=== PATIENT | male | born 1980 | race American Indian/Alaskan Native ===

== ENCOUNTER 2021-03-15 19:52 | Emergency (ER) | payer BC ==
[2021-03-15 23:53] VITALS: BP 133/84
--- NOTE | 2021-03-16 00:48 | Emergency Department Report ---
ED General Adult HPI - General Chief complaint: GI Bleed Stated complaint: HEMORRHOIDS PUI?: No Time Seen by Provider: 03/16/21 00:37 Source: patient, RN notes reviewed, old records reviewed Mode of arrival: Ambulatory Limitations: No Limitations - History of Present Illness Initial comments: The patient is a pleasant 40-year-old gentleman. The patient is not known to myself previously. In 2019, the patient had a colonoscopy in [place], for hemorrhoids. I am able to review his old medical records. He had a colonoscopy which demonstrated a fibrosed internal hemorrhoid at the rectum. He was discharged with instructions to eat a high fiber diet, consume Benefiber, and to follow-up with GI in 4 weeks. The patient presents to the ER today with a complaint of intermittent pain with defecation, and rectal bleeding. The patient denies headache, neck pain, chest pain, abdominal pain, shortness of breath, hematemesis. He denies urinary symptoms. He states he does not take NSAIDs, and he also reports he does not take any anticoagulants. He believes that this is similar to prior events when he had an issue with his hemorrhoids. His current symptoms have been going on for 2 weeks. They are intermittent, and not associated with defecation. They are painless otherwise, and did not radiate anywhere. -: week(s) Consistency: intermittent Improves with: rest Worsens with: other (Defecation) Associated Symptoms: denies other symptoms - Related Data Previous Rx's Medication Instructions Recorded Last Taken Type Hydrocortisone [Anusol-Hc 2.5% TOP 30 gm RC PRN PRN #5 cream..g. 03/16/21 Unknown Rx CREAM] Wheat Dextrin [Benefiber Healthy 2 tsp PO QDAY #1 powder 03/16/21 Unknown Rx Shape] Allergies Allergy/AdvReac Type Severity Reaction Status Date / Time No Known Allergies Allergy Unverified 03/15/21 23:46 ED Review of Systems ROS: Stated complaint: HEMORRHOIDS Other details as noted in HPI Comment: All other systems reviewed and negative Gastrointestinal: hematochezia. denies: hematemesis, melena ED Past Medical Hx - Past Medical History Previous Medical History?: No - Surgical History Past Surgical History?: No - Medications Home Medications: Home Medications Medication Instructions Recorded Confirmed Last Taken Type Hydrocortisone [Anusol-Hc 2.5% TOP 30 gm RC PRN PRN #5 cream..g. 03/16/21 Unknown Rx CREAM] Wheat Dextrin [Benefiber Healthy 2 tsp PO QDAY #1 powder 03/16/21 Unknown Rx Shape] ED Physical Exam - General Limitations: No Limitations General appearance: alert, in no apparent distress - Head Head exam: Present: atraumatic, normocephalic - Eye Eye exam: Present: normal appearance, EOMI. Absent: nystagmus - ENT ENT exam: Present: normal exam, normal orophraynx, mucous membranes moist, normal external ear exam - Neck Neck exam: Present: normal inspection, full ROM. Absent: tenderness, meningismus - Respiratory Respiratory exam: Present: normal lung sounds bilaterally. Absent: respiratory distress, wheezes, rales, rhonchi, stridor, decreased breath sounds - Cardiovascular Cardiovascular Exam: Present: normal rhythm, bradycardia, normal heart sounds. Absent: tachycardia, irregular rhythm, systolic murmur, diastolic murmur, rubs, gallop - GI/Abdominal GI/Abdominal exam: Present: soft, normal bowel sounds. Absent: distended, tenderness, guarding, rebound, rigid, pulsatile mass - Rectal Rectal exam: Present: normal inspection, normal rectal tone, heme (-) stool, hemorrhoids (External hemorrhoid.), other (Chaperoned by Yuridia Jenkins). Absent: heme (+) stool, black stool, bloody stool, fecal impaction - Extremities Exam Extremities exam: Present: normal inspection, full ROM, other (2+ pulses noted in the bilateral upper and lower extremities. There is no palpable cord. negative Homans sign. Muscular compartments are soft. The pelvis is stable.). Absent: pedal edema, calf tenderness - Back Exam Back exam: Present: normal inspection, full ROM. Absent: tenderness, CVA tenderness (R), CVA tenderness (L), paraspinal tenderness, vertebral tenderness - Neurological Exam Neurological exam: Present: alert, oriented X3, normal gait, other (No facial droop. Tongue midline. Extraocular movements intact bilaterally. Facial sensation intact to light touch in V1, V2, V3 distribution bilaterally. 5 and a 5 strength in 4 extremities. Sensation intact to light touch in 4 extremities.). Absent: motor sensory deficit - Psychiatric Psychiatric exam: Present: normal affect, normal mood - Skin Skin exam: Present: warm, dry, intact, normal color. Absent: rash ED Course Vital Signs 03/15/21 23:44 Temperature 98.3 F Pulse Rate 57 L Respiratory 18 Rate Blood Pressure 133/84 O2 Sat by Pulse 100 Oximetry ED Medical Decision Making - Lab Data Result diagrams: 03/16/21 00:01 03/16/21 00:01 Vital Signs 03/15/21 23:44 Temperature 98.3 F Pulse Rate 57 L Respiratory 18 Rate Blood Pressure 133/84 O2 Sat by Pulse 100 Oximetry Lab Results 03/16/21 03/16/21 Range/Units 00:01 00:01 WBC 6.4 (4.5-11.0) K/mm3 RBC 5.03 (3.65-5.03) M/mm3 Hgb 14.4 (11.8-15.2) gm/dl Hct 42.4 (35.5-45.6) % MCV 84 (84-94) fl MCH 29 (28-32) pg MCHC 34 (32-34) % RDW 13.3 (13.2-15.2) % Plt Count 151 (140-440) K/mm3 Lymph % (Auto) 32.1 (13.4-35.0) % [place] % (Auto) 10.1 H (0.0-7.3) % Eos % (Auto) 1.3 (0.0-4.3) % Baso % (Auto) 0.4 (0.0-1.8) % Lymph # (Auto) 2.0 (1.2-5.4) K/mm3 [place] # (Auto) 0.6 (0.0-0.8) K/mm3 Eos # (Auto) 0.1 (0.0-0.4) K/mm3 Baso # (Auto) 0.0 (0.0-0.1) K/mm3 Seg Neutrophils % 56.1 (40.0-70.0) % Seg Neutrophils # 3.6 (1.8-7.7) K/mm3 Estimated GFR > 60 ml/min BUN/Creatinine Ratio 11 % Vital Signs 03/15/21 23:44 Temperature 98.3 F Pulse Rate 57 L Respiratory 18 Rate Blood Pressure 133/84 O2 Sat by Pulse 100 Oximetry Lab Results 03/16/21 03/16/21 Range/Units 00:01 00:01 WBC 6.4 (4.5-11.0) K/mm3 RBC 5.03 (3.65-5.03) M/mm3 Hgb 14.4 (11.8-15.2) gm/dl Hct 42.4 (35.5-45.6) % MCV 84 (84-94) fl MCH 29 (28-32) pg MCHC 34 (32-34) % RDW 13.3 (13.2-15.2) % Plt Count 151 (140-440) K/mm3 Lymph % (Auto) 32.1 (13.4-35.0) % [place] % (Auto) 10.1 H (0.0-7.3) % Eos % (Auto) 1.3 (0.0-4.3) % Baso % (Auto) 0.4 (0.0-1.8) % Lymph # (Auto) 2.0 (1.2-5.4) K/mm3 [place] # (Auto) 0.6 (0.0-0.8) K/mm3 Eos # (Auto) 0.1 (0.0-0.4) K/mm3 Baso # (Auto) 0.0 (0.0-0.1) K/mm3 Seg Neutrophils % 56.1 (40.0-70.0) % Seg Neutrophils # 3.6 (1.8-7.7) K/mm3 Sodium 134 L (137-145) mmol/L Potassium 4.2 (3.6-5.0) mmol/L Chloride 99.8 (98-107) mmol/L Carbon Dioxide 27 (22-30) mmol/L Anion Gap 11 mmol/L BUN 13 (9-20) mg/dL Creatinine 1.2 (0.8-1.3) mg/dL Estimated GFR > 60 ml/min BUN/Creatinine Ratio 11 % Glucose 86 (75-100) mg/dL Calcium 9.3 (8.4-10.2) mg/dL - Medical Decision Making Differential diagnosis, including but not limited to: Internal hemorrhoids, external hemorrhoids Assessment and plan: 40-year-old gentleman, who was afebrile, with reassuring vital signs, with external hemorrhoids on my exam, no rectal bleeding on my exam, guaiac negative stool on my exam, appropriate hemoglobin and hematocrit, who is had an outpatient colonoscopy in 2019, which demonstrated internal hemorrhoids. Supportive care at this time, Anusol as needed, continue Benefiber, referred to local outpatient GI, return precautions are reviewed. Have discussed this plan of care with the patient. He has articulated understanding. All questions answered. Critical care attestation.: If time is entered above; I have spent that time in minutes in the direct care of this critically ill patient, excluding procedure time. ED Disposition Clinical Impression: External hemorrhoid, Internal hemorrhoid Disposition: TO HOME OR SELFCARE Is pt being admited?: No Does the pt Need Aspirin: No Condition: Stable Instructions: Gastrointestinal Bleeding, Hemorrhoids, [id number] Additional Instructions: Take the medications as needed and directed. Eat a high-fiber diet. Consume plenty of fiber, vegetables and lean protein. Drink 4 to 6 cups of water per day indefinitely. Avoid consumption of Motrin, ibuprofen, Naprosyn, Aleve, alcohol, tobacco, and aspirin. Follow-up with a manager philosophy within the next 4 weeks. Please return to the emergency room right away with new pain, worsened pain, migration of pain, projectile vomiting, change in mental status, confusion, inability to tolerate liquid feeds, vomiting blood, new/different defecation of blood, loss of consciousness, or any new, worsened or different symptoms not present on the initial emergency room evaluation. Prescriptions: Hydrocortisone [Anusol-Hc 2.5% TOP CREAM] 30 gm RC PRN PRN #5 cream..g. PRN Reason: Pain , Severe (7-10) Wheat Dextrin [Benefiber Healthy Shape] 2 tsp PO QDAY #1 powder Referrals: [facility] [Provider Group] - as needed Forms: Accompanied Note, Work/School Release Form(ED)
[2021-03-16 01:13] LABS: Basophils % (Auto) 0.4 % (0.0-1.8); Eosinophils # (Auto) 0.1 K/mm3 (0.0-0.4); Eosinophils % (Auto) 1.3 % (0.0-4.3); Hematocrit 42.4 % (35.5-45.6); Hemoglobin 14.4 gm/dl (11.8-15.2); Lymphocytes % (Auto) 32.1 % (13.4-35.0); Mean Corpuscular HGB Conc 34 % (32-34); Mean Corpuscular Volume 84 fl (84-94); Monocytes # (Auto) 0.6 K/mm3 (0.0-0.8); Monocytes % (Auto) 10.1 % (0.0-7.3); Platelet Count 151 K/mm3 (140-440); Red Blood Count 5.03 M/mm3 (3.65-5.03); Red Cell Distribution Width 13.3 % (13.2-15.2)
[2021-03-16 01:15] LABS: BUN/Creatinine Ratio 11; Blood Urea Nitrogen 13 mg/dL (9-20); Calcium 9.3 mg/dL (8.4-10.2); Hemolysis Index 19
== END 2021-03-16 01:33 | disposition home or self-care (01) ==
LOC: ED 19:52
DX: K64.4 Residual hemorrhoidal skin tags (principal); K64.8 Other hemorrhoids; Z79.899 Other long term (current) drug therapy
CPT/HCPCS: 36415; 80048; 85025; 99283

== ENCOUNTER 2021-10-03 10:46 | Day surgery (SDC) | payer BC ==
[2021-10-03] MEDS ORDERED: LACTATED RINGERS 0 ML ONE (11:07)
[2021-10-03] MEDS ORDERED: ceFAZolin/Water 2 GM/20 ML 2 GM/20 ML SYRINGE IV ONE (11:20)
[2021-10-03] MEDS ORDERED: LACTATED RINGERS 1,000 ML ONE (11:20)
[2021-10-03] MEDS ORDERED: LACTATED RINGERS 1,000 ML IV ONE (11:30)
[2021-10-03] MEDS ORDERED: ACETAMINOPHEN 500 MG TAB ONE (11:56)
[2021-10-03] MEDS ORDERED: CELECOXIB 200 MG CAP ONE (11:56)
[2021-10-03] MEDS ORDERED: GABAPENTIN 400 MG CAP ONE (11:57)
--- NOTE | 2021-10-03 11:59 | Anesthesia Day of Surgery ---
Anesthesia Day of Surgery - Day of Surgery Patient Examined: Yes Patient H&P Reviewed: Yes Patient is NPO: Yes
[2021-10-03] MEDS ORDERED: LACTATED RINGERS 1,000 ML IV SCH (12:00)
[2021-10-03] MEDS ORDERED: ONDANSETRON 4 MG/2 ML INJ IV PRN (12:00)
[2021-10-03] MEDS ORDERED: HYDROmorphone 1 MG/1 ML INJ IV PRN ×2 (12:00)
--- NOTE | 2021-10-03 12:00 | Anesthesia Consultation ---
Anesthesia Consult and Med Hx Date of service: 10/03/21 - Airway Anesthetic Teeth Evaluation: Chipped ROM Head & Neck: Adequate Mental/Hyoid Distance: Adequate Mallampati Class: Class II Intubation Access Assessment: Good - Pre-Operative Health Status ASA Pre-Surgery Classification: ASA1 Proposed Anesthetic Plan: General - Pulmonary Hx Smoking: No - Gastrointestinal Hx Gastroesophageal Reflux Disease: No - Hematic Hx Sickle Cell Disease: No - Other Systems Hx Cancer: No Hx Obesity: No
[2021-10-03] MEDS ORDERED: LIDOCAINE MPF (2%) 20 MG/1 ML VIAL 5 ML ONE (12:04)
[2021-10-03] MEDS ORDERED: NEOMY 40 MG/POLYMYXIN B 200,000 UNITS/ML (GU) AMPULE IR ONE ×2 (12:04→12:38)
[2021-10-03] MEDS ORDERED: propofoL 200 MG/20 ML VIAL IV ONE (12:05)
[2021-10-03] MEDS ORDERED: fentaNYL 100 MCG/2 ML INJ ONE ×2 (12:14→12:49)
[2021-10-03] MEDS ORDERED: SODIUM CHLORIDE 0.9% IRR 1,500 ML BOTTLE IR ONE (12:38)
[2021-10-03] MEDS ORDERED: ONDANSETRON 4 MG/2 ML INJ ONE (12:47)
[2021-10-03] MEDS ORDERED: dexAMETHasone 20 MG/5 ML VIAL ONE (12:47)
[2021-10-03] MEDS ORDERED: ePHEDrine SULFATE 50 MG/1 ML INJ ONE (13:04)
--- NOTE | 2021-10-03 13:19 | Discharge Summary ---
Short Stay Discharge Plan Activity: other (no sex) Weight Bearing Status: Full Weight Bearing Diet: regular, low fat, low cholesterol Wound: open to air Special Instructions: other (ice in rr and x 24 hrs when awake ) Follow up with: PRIMARY CARE, [Primary Care Provider] - 7 Days MEGGAN HURTADO MD [Staff Physician] - 14 Days
--- NOTE | 2021-10-03 13:20 | Post Operative Note ---
Date of procedure: 10/03/21 Findings: phimosis Procedure: circ Anesthesia: GETA Surgeon: MEGGAN HURTADO Estimated blood loss: minimal Pathology: list (foreskin) Specimen disposition: to lab Condition: stable Disposition: PACU
[2021-10-03] MEDS ORDERED: ceFAZolin/Water 2 GM/20 ML 2 GM/20 ML SYRINGE IV NR (14:00)
--- NOTE | 2021-10-03 14:53 | Post Anesthesia Evaluation ---
- Post Anesthesia Evaluation Patient Participated: Yes Airway Patent: Yes Stable Respiratory Function: Yes Nausea/Vomiting: No Temp > 96.8F: Yes Pain Manageable: Yes Adequeate Hydration: Yes Anesthesia Complications: Yes Block Receding Appropriately: Not Applicable Patient on Ventilator: No
[2021-10-03 16:08] VITALS: BP 128/87
--- NOTE | 2021-10-03 17:22 | Operative Report ---
DATE OF SURGERY: 10/03/2021 PREOPERATIVE DIAGNOSIS: Severe phimosis. POSTOPERATIVE DIAGNOSIS: Severe phimosis. PROCEDURE: Circumcision, sleeve technique. SURGEON: Sabas Hughes MD ANESTHESIA: General. FINDINGS: This is a gentleman with severe phimosis. He could not retract the foreskin without any bleeding and cracking. He now presents for circumcision. DESCRIPTION OF PROCEDURE: The patient was brought to the operating room ___. Following induction of anesthesia, placed in the supine position, prepped and draped in usual sterile fashion. Two circumferential incisions were marked out and these were connected dorsally. The skin was inflamed distally and excised. At this point, any small vessels were cauterized or tied. The patient tolerated the procedure well. Sutures were placed at 12, 3, 6, and 9 o'clock position and each quadrant was bisected. The patient tolerated the procedure well. There was no significant bleeding, brought to recovery room with a loose dressing to be removed tonight in stable condition. TID: [id number] RECEIPT: [id number] THELMA/KAYCEE/MELECIO
== END 2021-10-03 14:30 | disposition home or self-care (01) ==
LOC: OR 10:46
PROVIDERS: ATTEND Urology
PROC: 0VTTXZZ Resection of Prepuce, External Approach (ICD-10-PCS; principal; 2021-10-03)
DX: N47.1 Phimosis (principal); R03.0 Elevated blood-pressure reading, without diagnosis of hypertension; Z79.899 Other long term (current) drug therapy; Z98.890 Other specified postprocedural states
CPT/HCPCS: 54161; 88304; J0690; J1100; J2405; J2704; J3010; J3490; J7120